=== PATIENT | female | born 1995 | race Caucasian/White ===

== ENCOUNTER 2022-11-04 11:03 | Day surgery (SDC) | payer MEDICAID, SELFPAY ==
[2022-11-04] VITALS (16 sets, daily range): BP systolic 82–130; BP diastolic 51–82; PULSE 69–105; RESP 11–17; TEMP 36.2–36.7; O2SAT 94–99
--- NOTE | 2022-11-04 | PATH_ITS ---
[facility] Accession Number: [id number] No. of containers..01 Tissue . 01 Material submitted: . product of conception - PRODUCTS OF CONCEPTION . 01 Diagnosis: Products of Conception: Hypersecretory endometrium, blood clots, and scant decidualized tissue. Chorionic villi or other products of conception not identified. MRV 11/12/2022 1247 Local . 01 Electronically signed: . Lupis Hooper MD, Pathologist NPI- [id number] . 01 Gross description: . The specimen is received in formalin labeled with the patient's name, , and products of conception, and consists of multiple red-brown spongy soft tissue fragments aggregating to 5.4 x 5.0 x 0.8 cm. No tissue is identified. Child Welfare Manager sections are submitted in cassettes A1-A2. Additional sections are submitted in A3-A5. ([id number]) /MRV 11/08/2022 1636 Local . 01 Pathologist provided ICD-10: O02.1 . 01 CPT . 805701 Specimen Comment: A courtesy copy of this report has been sent to [phone] Performed at: 01 [facility] [address] [place] [address], [place], [place] [id number] MD Veto Lang MD Phone: [phone]
--- NOTE | 2022-11-04 11:09 | DI.US.S_ITS ---
PROCEDURE: US PELVIC COMPLETE INDICATIONS: HEAVY BLEEDING/SEVERE PAIN X4 HOURS. ELECTIVE OCT 31 TECHNIQUE: Real-time scanning was performed of the pelvic organs, with image documentation. Additional endovaginal scanning was necessary due to incomplete visualization of the adnexal and endometrial structures by transabdominal scanning. COMPARISON: None. FINDINGS: Uterus: Uterus is anteverted and enlarged in size at 10.2 x 8.3 x 6.0 cm. The myometrium is heterogenous, shows increased myometrial vascularity. Endometrium is also heterogenous and thickened measuring up to 1.5 cm. Mild internal vascularity present, suspicious for retained products of conception. Ovaries: Right left ovaries measure 2.8 x 2.9 x 2.0 cm and 2.0 x 1.2 x 1.2 cm respectively. Both ovaries have appropriate flow and vascularity. Other: Small amount of free fluid in the pelvis IMPRESSION: Probable retained products of conception. Heterogenous endometrial thickening does show internal vascularity, suspicious for retained products of conception. Approved by: Altaf Ponce M.D. on 11/04/2022 at 11:53
--- NOTE | 2022-11-04 11:14 | ED.GENADULT ---
HPI - General Adult General Chief complaint: Vaginal Bleeding Stated complaint: had on , bleeding for 4 hours Time Seen by Provider: 11/04/22 11:04 Source: patient Mode of arrival: Ambulatory Limitations: no limitations History of Present Illness HPI narrative: Patient is a 27-year-old female who underwent an elective 4 days ago at an outside facility. She states she was approximately 9 weeks EGA. Was a surgical . States that afterwards she did have some light spotting and minimal cramping however this morning the cramping significantly increased and she is had quite a bit of vaginal bleeding over the past 4 hours. The cramping is equivalent/worse to labor discomfort per her description. She denies fevers. Has not tried anything for the symptoms prior to arrival. No urinary symptoms. Related Data Home Medications Medication Instructions Recorded Confirmed ibuprofen 800 mg tablet 800 mg PO Q8H PRN Pain (Scale 11/04/22 11/04/22 Score 7-10) Allergies Allergy/AdvReac Type Severity Reaction Status Date / Time No Known Drug Allergies Allergy Verified 11/04/22 11:35 Review of Systems Constitutional Constitutional: Reports system reviewed and no additional complaints, except as documented Gastrointestinal Gastrointestinal: Reports system reviewed and no additional complaints, except as documented Genitourinary Genitourinary: Reports system reviewed and no additional complaints, except as documented Integumentary/Breasts Skin/Breast: Reports system reviewed and no additional complaints, except as documented Hematologic/Lymphatic On Anticoagulants: No Patient History Social History household members: spouse Smoking Status: Never smoker Exam Initial Vital Signs Initial Vital Signs: Vital Signs Temperature 98.1 F 11/04/22 11:05 Pulse Rate 76 11/04/22 11:05 Respiratory Rate 17 11/04/22 11:05 Blood Pressure 114/66 11/04/22 11:05 Pulse Oximetry 99 11/04/22 11:05 Oxygen Delivery Method 11/04/22 11:05 Const General: cooperative and No ill appearing HENMT Head: normal to inspection and normocephalic Resp Effort & Inspection: normal respiratory effort Cardio Rate: regular rate GI Other: Fullness in the lower abdomen that does appear to be uterus. Has diffuse tenderness. Other: Vaginal bleeding Skin General: no rashes or lesions noted Neuro General: patient alert, patient awake and moves all extremities Extrem General: normal to inspection and capillary refill normal Course Orders Ordered: ED Orders 11/04/22 11:09 US pelvic complete Stat 11/04/22 11:11 Basic Metabolic Panel Stat Complete Blood Count AUTO DIFF Stat 11/04/22 11:12 Type and Screen Stat 11/04/22 11:25 COVID19 -Nasal RAPID/Pre-Proc Stat 11/04/22 12:42 Consult to Physician Stat Hydrocodone Bitart/Acetaminophen (Hydrocodone/Acet 5/325 Tablet) 1 tab PO PACUNOW PRN PRN Reason: Mild or moderate pain Fentanyl (Fentanyl 100 Mcg/2 Ml Inj) 0 mcg IV Q5M PRN PRN Reason: Pain, Moderate (4-6) Hydromorphone HCl (Hydromorphone 2 Mg Inj) 0 mg IV Q5M PRN PRN Reason: Pain, Moderate (4-6) Lactated Ringer's (Lactated Ringers) 1,000 mls @ 42 mls/hr IV CONT RASTA Last Infusion: 11/04/22 15:21 Dose: 0 mls/hr Documented By: Infusion: 11/04/22 14:46 Dose: 0 mls/hr Documented By: Admin: 11/04/22 13:55 Dose: 42 mls/hr Documented By: MANISHA Lorazepam (Lorazepam 2 Mg/Ml Inj) 0.25 mg IV NOW PRN PRN Reason: Anxiety Metoclopramide HCl (Metoclopramide 10 Mg/2 Ml Inj) 10 mg IV NOW PRN PRN Reason: Nausea And Vomiting Ondansetron HCl (Ondansetron 4 Mg/2 Ml Inj) 4 mg IV NOW PRN PRN Reason: Nausea And Vomiting Last Admin: 11/04/22 14:58 Dose: 4 mg Documented By: MANISHA Oxycodone/Acetaminophen (Oxycodone/Acetaminophen 5/325 Tablet) 1 tab PO Q4HR PRN PRN Reason: Pain, Moderate (4-6) Last Admin: 11/04/22 14:58 Dose: 1 tab Documented By: MANISHA Discontinued Medications Hydromorphone HCl (Hydromorphone 1 Mg Inj) 1 mg IV NOW ONE Stop: 11/04/22 12:05 Last Admin: 11/04/22 12:08 Dose: 1 mg Documented By: WILBER Morphine Sulfate (Morphine 4 Mg/Ml Inj) 4 mg IV NOW ONE Stop: 11/04/22 11:15 Last Admin: 11/04/22 11:20 Dose: 4 mg Documented By: WILBER Morphine Sulfate (Morphine 4 Mg/Ml Inj) 4 mg IV NOW ONE Stop: 11/04/22 11:39 Last Admin: 11/04/22 11:40 Dose: 4 mg Documented By: WILBER Ondansetron HCl (Ondansetron 4 Mg/2 Ml Inj) 4 mg IV NOW ONE Stop: 11/04/22 13:22 Last Admin: 11/04/22 13:24 Dose: 4 mg Documented By: WILBER Rho Immune Globulin (Rho(D) Immune Globulin 1,500 Unit Syringe) 1,500 unit IM NOW ONE Stop: 11/04/22 14:24 Last Admin: 11/04/22 14:36 Dose: 1,500 unit Documented By: MANISHA Tranexamic Acid (Tranexamic Acid 1,000 Mg Vial) 1,000 mg IV NOW ONE Stop: 11/04/22 12:05 Last Admin: 11/04/22 12:15 Dose: 1,000 mg Documented By: WILBER Vital Signs Vital signs: Vital Signs - 8 hr 11/04/22 11:14 11/04/22 11:25 11/04/22 11:25 Pulse Rate 87 75 Blood Pressure 108/75 Pulse Oximetry 96 98 11/04/22 11:30 11/04/22 11:30 11/04/22 12:07 Pulse Rate 76 75 Blood Pressure 114/66 Pulse Oximetry 94 97 11/04/22 12:12 11/04/22 12:12 11/04/22 12:30 Pulse Rate 71 Blood Pressure 113/58 L 113/54 L Pulse Oximetry 96 11/04/22 12:30 11/04/22 13:00 11/04/22 13:00 Pulse Rate 71 105 H Blood Pressure 130/82 Pulse Oximetry 96 98 11/04/22 13:29 11/04/22 13:30 Pulse Rate 71 Blood Pressure 108/56 L Pulse Oximetry 96 Medical Decision Making Lab Data Lab results reviewed: Yes I reviewed the patient's lab results. 11/04/22 11:11 11/04/22 11:11 Labs: Lab Results 11/04/22 11/04/22 11/04/22 Range/Units 11:11 11:11 11:12 WBC 11.6 H (4.5-11.0) X10^3/uL RBC 4.08 (4.0-5.2) X10^6/uL Hgb 11.5 L (12.0-16.0) g/dL Hct 34.7 L (36-46) % MCV 85.0 (80-100) fL MCH 28.1 (26-34) PG MCHC 33.1 (30-36) % RDW 14.6 (11.6-14.8) % Plt Count 294 (150-400) X10^3/uL Neut % (Auto) 63.6 (50-75) % Lymph % (Auto) 27.3 (25-40) % [place] % (Auto) 6.4 (3-14) % Eos % (Auto) 2.0 (2-4) % Baso % (Auto) 0.7 (0-2) % Neut # (Auto) 7400 H (3532-4149) /uL Lymph # (Auto) 3200 (2394-3673) /uL [place] # (Auto) 700 (0-900) /uL Eos # (Auto) 200 (0-450) /uL Baso # (Auto) 100 (0-100) /uL Sodium 137 (137-145) mmol/L Potassium 3.7 (3.4-5.1) mmol/L Chloride 106 (98-107) mmol/L Carbon Dioxide 19 L (22-32) mmol/L BUN 11 (7-17) mg/dL Creatinine 0.48 L (0.52-1.04) mg/dL Estimated GFR > 60 (>60) mL/min BUN/Creatinine Ratio 22.9 H (6-22) Glucose 80 (70-100) mg/dL Calcium 8.9 (8.4-10.2) mg/dL SARS-CoV-2 (PCR) (Negative) Blood Type O Positive Antibody Screen Negative 11/04/22 Range/Units 11:25 WBC (4.5-11.0) X10^3/uL RBC (4.0-5.2) X10^6/uL Hgb (12.0-16.0) g/dL Hct (36-46) % MCV (80-100) fL MCH (26-34) PG MCHC (30-36) % RDW (11.6-14.8) % Plt Count (150-400) X10^3/uL Neut % (Auto) (50-75) % Lymph % (Auto) (25-40) % [place] % (Auto) (3-14) % Eos % (Auto) (2-4) % Baso % (Auto) (0-2) % Neut # (Auto) (6633-4749) /uL Lymph # (Auto) (2256-1700) /uL [place] # (Auto) (0-900) /uL Eos # (Auto) (0-450) /uL Baso # (Auto) (0-100) /uL Sodium (137-145) mmol/L Potassium (3.4-5.1) mmol/L Chloride (98-107) mmol/L Carbon Dioxide (22-32) mmol/L BUN (7-17) mg/dL Creatinine (0.52-1.04) mg/dL Estimated GFR (>60) mL/min BUN/Creatinine Ratio (6-22) Glucose (70-100) mg/dL Calcium (8.4-10.2) mg/dL SARS-CoV-2 (PCR) Negative (Negative) Blood Type Antibody Screen Imaging Data US - FEDERAL LAW CLERK: Radiologist's Impression: [place] [address] Ultrasound Report Signed Patient: Yolanda Basilio MR#: [id number] : 1995 Acct:[id number] Age/Sex: 27 / F Date of Service: 11/04/22 Loc: ED Accession Number: [id number] ?? Procedure: US pelvic complete Ordering Provider: Pino Tinoco D.O. PROCEDURE:? US PELVIC COMPLETE ? INDICATIONS:? HEAVY BLEEDING/SEVERE PAIN X4 HOURS. ELECTIVE OCT 31 ? TECHNIQUE:? Real-time scanning was performed of the pelvic organs, with image documentation.? Additional endovaginal scanning was necessary due to incomplete visualization of the adnexal and endometrial structures by transabdominal scanning.? ? COMPARISON:? None. ? FINDINGS:? ?? Uterus:? Uterus is anteverted and enlarged in size at 10.2 x 8.3 x 6.0 cm. The myometrium is heterogenous, shows increased myometrial vascularity.? Endometrium is also heterogenous and thickened measuring up to 1.5 cm.? Mild internal vascularity present, suspicious for retained products of conception.? ? Ovaries:? Right left ovaries measure 2.8 x 2.9 x 2.0 cm and 2.0 x 1.2 x 1.2 cm respectively.? Both ovaries have appropriate flow and vascularity. ? Other:? Small amount of free fluid in the pelvis ? ? IMPRESSION:? ? Probable retained products of conception.? Heterogenous endometrial thickening does show internal vascularity, suspicious for retained products of conception. ? Approved by: Altaf Ponce M.D. on 11/04/2022 at 11:53? [facility] Narrative Medical decision making narrative: Patient with a surgical elective less than 1 week ago. Is having quite a bit of vaginal bleeding today. Ultrasound shows retained products of conception. Patient not anemic. Not tachycardic. Was given 1 g of TXA. Type and screen obtained. No blood required at this point. I did discuss the case with Dr. Heredia with pathology technologist who will take the patient to the operating room for D&C. I did discuss the need for this with the patient. She expressed understanding and agreement. Discharge Plan Departure Patient Disposition: Admitted to Surgery Clinical Impression: Vaginal bleeding, Retained products of conception Admit Date/Time: 11/04/22 13:38 Admit Provider: Meagan Heredia
[2022-11-04 11:20] LABS: Add Manual Diff / Slide Review NO; Basophils Absolute Auto 100 /uL (0-100); Basophils Percent Auto 0.7 % (0-2); Eosinophils Absolute Auto 200 /uL (0-450); Hematocrit 34.7 % (36-46); Hemoglobin 11.5 g/dL (12.0-16.0); Lymphocytes Absolute Auto 3200 /uL (1100-4500); Lymphocytes Percent Auto 27.3 % (25-40); Mean Corpuscular HGB Conc 33.1 % (30-36); Mean Corpuscular Hemoglobin 28.1 PG (26-34); Monocytes Absolute Auto 700 /uL (0-900); Monocytes Percent Auto 6.4 % (3-14); Neutrophils Absolute Auto 7400 /uL (1500-7000); Neutrophils Percent Auto 63.6 % (50-75); Platelet Count 294 X10^3/uL (150-400); Red Blood Cell Count 4.08 X10^6/uL (4.0-5.2); Red Cell Distribution Width 14.6 % (11.6-14.8); White Blood Cell Count 11.6 X10^3/uL (4.5-11.0)
[2022-11-04] MEDS: MORPHINE 4 MG/ML INJ IV ×2 (11:20→11:40)
[2022-11-04 11:30] LABS: BUN Creatinine Ratio 22.9 (6-22); Blood Urea Nitrogen 11 mg/dL (7-17); Calcium 8.9 mg/dL (8.4-10.2); Carbon Dioxide 19 mmol/L (22-32); Chloride 106 mmol/L (98-107); Estimated Glomerular Filt Rate > 60 mL/min (>60); Glucose 80 mg/dL (70-100); Potassium 3.7 mmol/L (3.4-5.1); Sodium 137 mmol/L (137-145)
[2022-11-04 11:32] LABS: HEMOLYSIS < 15 (0-50)
[2022-11-04 11:56] LABS: COVID19 -Nasal RAPID Negative (Negative)
[2022-11-04] MEDS: HYDROMORPHONE 1 MG INJ IV (12:08)
[2022-11-04] MEDS: TRANEXAMIC ACID 1,000 MG VIAL 1000 MG IV (12:15)
[2022-11-04] MEDS: ONDANSETRON 4 MG/2 ML INJ IV ×2 (13:24→14:58)
--- NOTE | 2022-11-04 13:48 | PM.HP.1 ---
History of Present Illness History of Present Illness Date Patient Seen: 11/04/22 Time Patient Seen: 13:48 Chief complaint: had on , bleeding for 4 hours Narrative: Patient is a 27-year-old 3 para 2 with retained products of conception, here for a suction D&C. Patient had an elective termination of 4 days ago. She had light bleeding afterwards. This morning she was getting ready for restorationist and felt a large amount of blood which turned out to be clots. She has continued to bleed heavily all morning. Patient History Family & Social History Safety & Behavioral: Feels Safe in Current Yes Environment Been Physically Hurt or No Threatened By a Person Tobacco & Substance use: Smoking Status Never smoker alcohol intake frequency 0-2 drinks per day Substance Use Type does not use Meds Home Medications and Allergies Home Medications Medication Instructions Recorded Confirmed Type ibuprofen 800 mg tablet 800 mg PO Q8H PRN Pain (Scale 11/04/22 11/04/22 History Score 7-10) Allergies Allergy/AdvReac Type Severity Reaction Status Date / Time No Known Drug Allergies Allergy Verified 11/04/22 11:35 Exam Vital Signs (past 8 hours): - 11/04/22 11:05 11/04/22 11:14 11/04/22 11:25 Temperature 98.1 F Pulse Rate 76 87 Respiratory Rate 17 Blood Pressure 114/66 108/75 Pulse Oximetry 99 96 Oxygen Delivery Method Room Air 11/04/22 11:25 11/04/22 11:30 11/04/22 11:30 Temperature Pulse Rate 75 76 Respiratory Rate Blood Pressure 114/66 Pulse Oximetry 98 94 Oxygen Delivery Method 11/04/22 12:07 11/04/22 12:12 11/04/22 12:12 Temperature Pulse Rate 75 71 Respiratory Rate Blood Pressure 113/58 L Pulse Oximetry 97 96 Oxygen Delivery Method 11/04/22 12:30 11/04/22 12:30 11/04/22 13:00 Temperature Pulse Rate 71 Respiratory Rate Blood Pressure 113/54 L 130/82 Pulse Oximetry 96 Oxygen Delivery Method 11/04/22 13:00 11/04/22 13:29 11/04/22 13:30 Temperature Pulse Rate 105 H 71 Respiratory Rate Blood Pressure 108/56 L Pulse Oximetry 98 96 Oxygen Delivery Method Oxygen Delivery Method Room Air Narrative Exam Narrative: Generally: Mild distress due to cramping HEENT: No thyromegaly, no anterior cervical or supraclavicular lymphadenopathy. Lungs:Clear to auscultation bilaterally, no wheezes. Cardiovascular: Regular rate and rhythm, no murmurs, rubs, or gallops. Abdomen: No scars. No hepatosplenomegaly. No masses palpable. External genitalia: Normal Vagina: Blood in the vaginal vault. Cervix: Parous. Large clots coming from the cervical os Bimanual exam: 10 Week size anteverted uterus. Mobile. Slightly tender on palpation. Extremities: No edema Objective Labs 11/04/22 11:11 11/04/22 11:11 Labs: Laboratory Results - last 24 hr 11/04/22 11/04/22 11/04/22 11:11 11:11 11:12 WBC 11.6 H RBC 4.08 Hgb 11.5 L Hct 34.7 L MCV 85.0 MCH 28.1 MCHC 33.1 RDW 14.6 Plt Count 294 Neut % (Auto) 63.6 Lymph % (Auto) 27.3 [place] % (Auto) 6.4 Eos % (Auto) 2.0 Baso % (Auto) 0.7 Neut # (Auto) 7400 H Lymph # (Auto) 3200 [place] # (Auto) 700 Eos # (Auto) 200 Baso # (Auto) 100 Sodium 137 Potassium 3.7 Chloride 106 Carbon Dioxide 19 L BUN 11 Creatinine 0.48 L Estimated GFR > 60 BUN/Creatinine Ratio 22.9 H Glucose 80 Calcium 8.9 SARS-CoV-2 (PCR) Blood Type O Positive Antibody Screen Negative 11/04/22 11:25 WBC RBC Hgb Hct MCV MCH MCHC RDW Plt Count Neut % (Auto) Lymph % (Auto) [place] % (Auto) Eos % (Auto) Baso % (Auto) Neut # (Auto) Lymph # (Auto) [place] # (Auto) Eos # (Auto) Baso # (Auto) Sodium Potassium Chloride Carbon Dioxide BUN Creatinine Estimated GFR BUN/Creatinine Ratio Glucose Calcium SARS-CoV-2 (PCR) Negative Blood Type Antibody Screen Assessment & Plan Assessment & Plan narrative: Assessment: 27-year-old 3 para 2 with retained products conception after an elective termination of Plan: Suction D&C The risks, benefits, and alternatives to the procedure were explained to the patient. The risks including bleeding, infection, and uterine perforation. She understands these risks and agrees to proceed. A full par Q was held and consent form was signed. COVID-19 COVID-19 status: Negative Result date/Date tested (Pos, Neg/Pending): 11/04/22 Time Spent With Patient Time with patient: less than 30 minutes Critical Care time: I spent a total of [] minutes of critical care time on this patient's care today; this time is exclusive of procedural time.
--- NOTE | 2022-11-04 13:52 | PM.PREOP ---
Pre-operative Note COVID-19 COVID-19 status: Negative Result date/Date tested (Pos, Neg/Pending): 11/04/22 Criteria for continued procedure: Non-surgical alternatives not available or appropriate per current SOC Interval Note History & Physical reviewed/Exam performed by Physician: Yes Changes to H&P: No H&P completed within 30 days and has changed as indicated here:: 11/04/22
[2022-11-04] MEDS: LACTATED RINGERS 1,000 ML 42 ML IV (13:55)
--- NOTE | 2022-11-04 14:27 | PM.GYNOP.1 ---
Operative Date/Time/Diagnoses Date of procedure: 11/04/22 Time of procedure: 14:27 Pre-op diagnosis: Retained products of conception Rh negative Post-op diagnosis: same Procedure & Clinicians Procedure: Procedures Operation Date: 11/04/22 14:00 Actual Procedure Side Surgeon p Dilation and Curettage Meagan Heredia MD Indications: Retained products of conception Surgeon: Meagan Heredia Anesthesia Type: General (LMA) Operative Notes Findings: 8 week size anteverted uterus Large amount of retained products of conception Closure Type: not applicable Specimen(s): products of conception Estimated blood loss (mL): 20 Blood products transfused: none Procedure in detail: After informed consent was obtained, the patient was taken to the operating room where she was placed in the dorsal supine position. After adequate LMA general anesthesia was achieved, she was placed in the dorsal lithotomy position, and prepped and draped usual sterile fashion. A time-out was performed. A bivalve speculum was placed into the vagina and the anterior lip of the cervix was grasped with a single-tooth tenaculum. The cervical os was sequentially dilated until the # 8 curved plastic curette could pass easily into the endometrial cavity. Several passes with suction revealed a large amount of tissue on the first 2 passes. The last 2 passes were blood only. The instrument was removed from the uterus. The single-tooth tenaculum was removed from the anterior lip of the cervix. The bivalve speculum was removed from the vagina. Sponge, lap, and instrument counts were correct x2. The patient tolerated the procedure well, and was taken to PACU in stable condition. Complications: none Post-operative Condition: stable Disposition: PACU Plan for aftercare: Home after recovery
[2022-11-04] MEDS: RHO(D) IMMUNE GLOBULIN 1,500 UNIT SYRINGE 1500 UNIT IM (14:36)
--- NOTE | 2022-11-04 14:37 | SUR.OPER ---
Lithotomy on padded OR bed, head on pillow, arms secured on padded arm boards at <90 degrees abduction. Legs secured in padded yellow fins stirrups.
[2022-11-04] MEDS: OXYCODONE/ACETAMINOPHEN 5/325 TABLET 1 TAB PO (14:58)
== END 2022-11-04 17:00 | disposition home or self-care (01) ==
LOC: ED 13:07 → AC 14:32 → OR 11-08 14:51
PROVIDERS: Emergency Provider Emergency Medicine; PCP Family Medicine; Referring Provider Emergency Medicine; Visit Provider Obstetrics & Gynecology
PROC: (CPT 58120; principal; 2022-11-04 14:00)
DX: O07.1 Delayed or excessive hemorrhage following failed attempted termination of pregnancy (principal); Z3A.08 8 weeks gestation of pregnancy; Z20.822 Contact with and (suspected) exposure to COVID-19
CPT/HCPCS: 59812; 76830; 76856; 80048; 85025; 86850; 86900; 86901; 87635; 93975; 99284; C9803; J1100; J1170; J1885; J2250; J2270; J2405; J2704; J2790; J3010